=== PATIENT | female | born 1955 | race Two or more races ===

== ENCOUNTER 2020-03-30 08:53 | Inpatient (IN) | payer SELFPAY ==
[~2020-03-30] VITALS: Ht 154.9 cm; Wt 73.5 kg
[2020-03-30] MEDS ORDERED: ACETAMINOPHEN 325 MG TAB PO ONE (10:00)
[2020-03-30] MEDS ORDERED: DOXYCYCLINE 100MG/250ML 250 ML IV ONE (10:15)
[2020-03-30] MEDS ORDERED: DexAMETHasone SOD PHOS 10MG/1ML VIAL INJ IV ONE (10:15)
[2020-03-30] MEDS ORDERED: cefTRIAXone 1GM/50ML D5W 50 ML IV ONE (10:15)
[2020-03-30 10:22] LABS: Basophils # (auto) 0 10 ^3/uL (0-0.2); Basophils % (auto) 0.2 % (0.0-2.0); Eosinophils # (auto) 0 10 ^3/uL (0-0.8); Hematocrit 46.5 % (36.0-46.0); Hemoglobin 15.9 g/dL (12.2-16.2); Lymphocytes # (auto) 0.8 10 ^3/uL (0.4-5.4); Lymphocytes % (auto) 10.2 % (10.0-50.0); Mean Corpuscular Hemoglobin 30.5 pg (28.0-32.0); Mean Corpuscular Hgb Conc. 34.2 g/dL (32.0-36.0); Mean Corpuscular Volume 89.3 fL (80.0-100.0); Monocytes # (auto) 0.4 10 ^3/uL (0-1.3); Monocytes % (auto) 5.4 % (0.0-12.0); Neutrophils # (auto) 6.8 10 ^3/uL (1.6-8.6); Neutrophils % (auto) 84.2 % (37.0-80.0); Nucleated Red Blood Cells % 0.1 %; Platelet Count (auto) 201 10^3/uL (140-450); White Blood Cell 8.1 10^3/uL (4.4-10.8)
[2020-03-30 10:29] LABS: Alanine Aminotransferase 50 U/L (13-56); Albumin 3.1 g/dL (3.4-5.0); Anion Gap 8 (5-15); Aspartate Aminotransferase 43 U/L (15-37); BUN/Creatinine Ratio 22.1; Blood Urea Nitrogen 17 mg/dL (7-18); Calcium 8.6 mg/dL (8.5-10.1); Carbon Dioxide 26 mmol/L (21-32); Chloride 101 mmol/L (98-107); GFR African American 97 mL/min; GFR Non-African American 80 mL/min; Glucose 207 mg/dL (74-106); Potassium 3.5 mmol/L (3.5-5.1); Sodium 135 mmol/L (136-145)
[2020-03-30] MEDS ORDERED: ASCORBIC ACID 500 MG TAB PO ONE (10:30)
[2020-03-30] MEDS ORDERED: ZINC SULFATE 220mg CAP or TAB PO ONE (10:30)
[2020-03-30 10:33] LABS: Alkaline Phosphatase 81 U/L (45-117); Bilirubin, Total 0.8 mg/dL (0.2-1.0); Total Protein 7.6 g/dL (6.4-8.2)
[2020-03-30 11:09] LABS: Lactic Acid w/Reflex 2.2 mmol/L (0.4-2.0)
[2020-03-30] MEDS ORDERED: NITROGLYCERIN 0.4 MG SL TAB SL PRN (16:15)
[2020-03-30] MEDS ORDERED: REMDESIVIR PER PHARMACY 0 ML IV SCH (16:15)
[2020-03-30] MEDS ORDERED: MORPHINE SULF INJ 2 MG/ML SYRINGE 1ML IV PRN (16:15)
[2020-03-30 18:04] LABS: Magnesium 2.4 mg/dL (1.6-2.6)
[2020-03-30 18:53] LABS: CRP High Sensitivity 10.6 mg/dL (< 0.3)
[2020-03-30] MEDS: ENOXAPARIN SOD 40 MG/0.4 ML SYRINGE SC SCH (20:44)
[2020-03-30] MEDS: BUDESONIDE (INHALATION) 180 MCG IH IN SCH (20:45)
[2020-03-31 07:27] LABS: Basophils # (auto) 0 10 ^3/uL (0-0.2); Basophils % (auto) 0.3 % (0.0-2.0); Eosinophils # (auto) 0 10 ^3/uL (0-0.8); Hematocrit 43.9 % (36.0-46.0); Hemoglobin 14.9 g/dL (12.2-16.2); Lymphocytes # (auto) 0.9 10 ^3/uL (0.4-5.4); Lymphocytes % (auto) 14.4 % (10.0-50.0); Mean Corpuscular Hemoglobin 30.1 pg (28.0-32.0); Mean Corpuscular Hgb Conc. 33.9 g/dL (32.0-36.0); Mean Corpuscular Volume 88.7 fL (80.0-100.0); Monocytes # (auto) 0.6 10 ^3/uL (0-1.3); Monocytes % (auto) 9.4 % (0.0-12.0); Neutrophils # (auto) 4.6 10 ^3/uL (1.6-8.6); Neutrophils % (auto) 75.9 % (37.0-80.0); Nucleated Red Blood Cells % 0.3 %; Platelet Count (auto) 247 10^3/uL (140-450); Red Blood Cells 4.95 10^6/uL (4.0-5.20)
[2020-03-31 07:42] LABS: Albumin 2.5 g/dL (3.4-5.0); Calcium 8.7 mg/dL (8.5-10.1); Potassium 3.5 mmol/L (3.5-5.1)
[2020-03-31 07:46] LABS: BUN/Creatinine Ratio 32.8; Bilirubin, Total 0.6 mg/dL (0.2-1.0)
[2020-03-31] MEDS: DexAMETHasone SOD PHOS 10MG/1ML VIAL INJ IV SCH (08:23)
[2020-03-31] MEDS: ENOXAPARIN SOD 40 MG/0.4 ML SYRINGE SC SCH ×2 (08:23→22:02)
[2020-03-31] MEDS: CHOLECALCIFEROL (VITD3) 2,000 UNIT CAP PO SCH (08:23)
[2020-03-31] MEDS: ZINC SULFATE 220mg CAP or TAB PO SCH (08:23)
[2020-03-31] MEDS: ASCORBIC ACID 1,000 MG TAB PO SCH (08:23)
[2020-03-31] MEDS: BUDESONIDE (INHALATION) 180 MCG IH IN SCH ×2 (10:00→22:00)
[2020-03-31 10:22] LABS: Urine Bacteria NONE SEEN /hpf (None Seen); Urine Blood Negative /uL (Negative); Urine Mucus FEW (None Seen); Urine Specific Gravity 1.031 (1.001-1.035); Urine WBC 2 /hpf (0 - 5)
[2020-03-31] MEDS: ALBUTEROL SULF HFA 90MCG INH 200DOSE IN PRN (11:19)
[2020-03-31] MEDS ORDERED: FUROSEMIDE 40 MG/4 ML VIAL IV ONE (17:45)
[2020-03-31] MEDS ORDERED: DEXTROSE (50%) 50ML SYRG IV PRN (17:45)
[2020-03-31] MEDS: FUROSEMIDE 20 MG/2 ML VIAL IV SCH (18:00)
[2020-03-31 18:15] LABS: Cholesterol 126 mg/dL (< 200)
[2020-03-31 18:19] LABS: HDL Cholesterol 33 mg/dL (40-59); LDL Cholesterol 76 mg/dL (< 100); Triglycerides 137 mg/dL (< 150)
[2020-03-31] MEDS: SODIUM CHLORIDE 0.9% 1,000 ML IV SCH (18:20)
[2020-03-31] MEDS: DOXYCYCLINE 100MG/250ML 250 ML IV SCH (18:21)
[2020-03-31 20:34] VITALS: BP 124/77
[2020-03-31] MEDS: ACCU-CHEK COMFORT CURVE STRIP VI SCH (22:02)
[2020-03-31] MEDS: ATORVASTATIN 20 MG TAB PO SCH (22:02)
[2020-03-31] MEDS: InsuLIN REG 1unit/0.01ml Soln (100units/ml) SC SCH (22:03)
[2020-03-31] MEDS ORDERED: ACETAMINOPHEN 325 MG TAB PO PRN (22:15)
[2020-04-01] VITALS: BP 124/77
[2020-04-01] MEDS: ACCU-CHEK COMFORT CURVE STRIP VI SCH ×4 (06:24→22:10)
[2020-04-01] MEDS: FUROSEMIDE 20 MG/2 ML VIAL IV SCH ×2 (06:24→17:26)
[2020-04-01] MEDS: InsuLIN REG 1unit/0.01ml Soln (100units/ml) SC SCH ×4 (06:27→22:09)
[2020-04-01 08:00] VITALS: BP 124/77
[2020-04-01] MEDS: BUDESONIDE (INHALATION) 180 MCG IH IN SCH ×2 (10:00→20:01)
[2020-04-01] MEDS: CHOLECALCIFEROL (VITD3) 2,000 UNIT CAP PO SCH (10:04)
[2020-04-01] MEDS: ASPirin 81 mg TAB PO SCH (10:04)
[2020-04-01] MEDS: ASCORBIC ACID 1,000 MG TAB PO SCH (10:04)
[2020-04-01] MEDS: ZINC SULFATE 220mg CAP or TAB PO SCH (10:04)
[2020-04-01] MEDS: DOXYCYCLINE 100MG/250ML 250 ML IV SCH ×2 (10:06→22:12)
[2020-04-01] MEDS: DexAMETHasone SOD PHOS 10MG/1ML VIAL INJ IV SCH (10:06)
[2020-04-01] MEDS: ENOXAPARIN SOD 40 MG/0.4 ML SYRINGE SC SCH ×2 (10:07→22:11)
[2020-04-01] MEDS: SODIUM CHLORIDE 0.9% 1,000 ML IV SCH (13:26)
[2020-04-01] MEDS: ALBUTEROL SULF HFA 90MCG INH 200DOSE IN PRN ×2 (13:55→20:01)
[2020-04-01 16:00] VITALS: BP 117/69
[2020-04-01] MEDS ORDERED: SODIUM CHLORIDE 0.9% 1,000 ML IV SCH (21:30)
[2020-04-01] MEDS ORDERED: POTASSIUM CHL 20 Meq TABLET PO ONE (21:30)
[2020-04-01] MEDS ORDERED: INSULIN LANTUS (GLARGINE) 1 /0.01ml (100units/ml) SC SCH (22:00)
[2020-04-01] MEDS: ATORVASTATIN 20 MG TAB PO SCH (22:11)
[2020-04-01 23:38] VITALS: BP 106/73
[2020-04-01 23:54] VITALS: BP 114/77
[2020-04-02] VITALS: BP 116/70
[2020-04-02 01:15] VITALS: BP 120/72
[2020-04-02] MEDS: FUROSEMIDE 20 MG/2 ML VIAL IV SCH ×2 (05:24→17:31)
[2020-04-02] MEDS: InsuLIN REG 1unit/0.01ml Soln (100units/ml) SC SCH ×4 (06:10→23:59)
[2020-04-02] MEDS: ACCU-CHEK COMFORT CURVE STRIP VI SCH ×4 (06:10→23:59)
[2020-04-02 08:00] VITALS: BP 104/60
[2020-04-02] MEDS: BUDESONIDE (INHALATION) 180 MCG IH IN SCH ×2 (08:00→20:10)
[2020-04-02] MEDS: ALBUTEROL SULF HFA 90MCG INH 200DOSE IN PRN ×2 (08:00→20:10)
[2020-04-02] MEDS: ASPirin 81 mg TAB PO SCH (10:24)
[2020-04-02] MEDS: DOXYCYCLINE 100MG/250ML 250 ML IV SCH (10:24)
[2020-04-02] MEDS: CHOLECALCIFEROL (VITD3) 2,000 UNIT CAP PO SCH (10:25)
[2020-04-02] MEDS: ASCORBIC ACID 1,000 MG TAB PO SCH (10:26)
[2020-04-02] MEDS: POTASSIUM CHL 20 Meq TABLET PO SCH (10:26)
[2020-04-02] MEDS: ENOXAPARIN SOD 40 MG/0.4 ML SYRINGE SC SCH ×2 (10:26→22:18)
[2020-04-02] MEDS: ZINC SULFATE 220mg CAP or TAB PO SCH (10:26)
[2020-04-02] MEDS: DexAMETHasone SOD PHOS 10MG/1ML VIAL INJ IV SCH (10:27)
[2020-04-02 16:00] VITALS: BP 109/64
[2020-04-02] MEDS ORDERED: cefTRIAXone 1GM/50ML D5W 50 ML IV ONE (20:15)
[2020-04-02] MEDS ORDERED: AZITHROMYCIN 250 MG TAB PO ONE (20:15)
[2020-04-02] MEDS ORDERED: DEXTROSE (50%) 50ML SYRG IV PRN (20:15)
[2020-04-02] MEDS ORDERED: REMDESIVIR 200 MG in NS 210ml LOADING DOSE ADULT IV ONE (22:00)
[2020-04-02] MEDS: ATORVASTATIN 20 MG TAB PO SCH (22:18)
[2020-04-02] MEDS: INSULIN LANTUS (GLARGINE) 1 /0.01ml (100units/ml) SC SCH (22:22)
[2020-04-03] VITALS: BP 109/60
[2020-04-03] MEDS: InsuLIN REG 1unit/0.01ml Soln (100units/ml) SC SCH ×3 (05:28→18:00)
[2020-04-03] MEDS: ACCU-CHEK COMFORT CURVE STRIP VI SCH ×3 (05:29→18:00)
[2020-04-03] MEDS: FUROSEMIDE 20 MG/2 ML VIAL IV SCH (05:29)
[2020-04-03 08:00] VITALS: BP 107/57
[2020-04-03] MEDS: BUDESONIDE (INHALATION) 180 MCG IH IN SCH ×2 (10:00→19:45)
[2020-04-03] MEDS: POTASSIUM CHL 20 Meq TABLET PO SCH (11:03)
[2020-04-03] MEDS: DexAMETHasone SOD PHOS 10MG/1ML VIAL INJ IV SCH (11:03)
[2020-04-03] MEDS: ZINC SULFATE 220mg CAP or TAB PO SCH (11:03)
[2020-04-03] MEDS: ASPirin 81 mg TAB PO SCH (11:03)
[2020-04-03] MEDS: CHOLECALCIFEROL (VITD3) 2,000 UNIT CAP PO SCH (11:04)
[2020-04-03] MEDS: ASCORBIC ACID 1,000 MG TAB PO SCH (11:04)
[2020-04-03] MEDS: ENOXAPARIN SOD 40 MG/0.4 ML SYRINGE SC SCH ×2 (11:05→21:46)
[2020-04-03] MEDS: REMDESIVIR 100mg 100 MG in SODIUM CHL 0.9% 230 ML IV SCH (14:58)
[2020-04-03 16:00] VITALS: BP 135/74
[2020-04-03] MEDS ORDERED: FUROSEMIDE 40 MG/4 ML VIAL IV SCH (18:00)
[2020-04-03] MEDS: ALBUTEROL SULF HFA 90MCG INH 200DOSE IN PRN (19:45)
[2020-04-03] MEDS: cefTRIAXone 1GM/50ML D5W 50 ML IV SCH (21:02)
[2020-04-03] MEDS: AZITHROMYCIN 250 MG TAB PO SCH (21:46)
[2020-04-03] MEDS: ATORVASTATIN 20 MG TAB PO SCH (21:46)
[2020-04-03] MEDS: INSULIN LANTUS (GLARGINE) 1 /0.01ml (100units/ml) SC SCH (22:00)
[2020-04-04] VITALS: BP 128/72
[2020-04-04] MEDS: ACCU-CHEK COMFORT CURVE STRIP VI SCH ×5 (06:00→23:20)
[2020-04-04] MEDS: InsuLIN REG 1unit/0.01ml Soln (100units/ml) SC SCH ×5 (06:00→23:23)
[2020-04-04 07:15] LABS: Basophils # (auto) 0 10 ^3/uL (0-0.2); Basophils % (auto) 0.2 % (0.0-2.0); Eosinophils # (auto) 0 10 ^3/uL (0-0.8); Hematocrit 45.7 % (36.0-46.0); Hemoglobin 15.9 g/dL (12.2-16.2); Lymphocytes # (auto) 1.3 10 ^3/uL (0.4-5.4); Lymphocytes % (auto) 13.1 % (10.0-50.0); Mean Corpuscular Hemoglobin 30.8 pg (28.0-32.0); Mean Corpuscular Hgb Conc. 34.8 g/dL (32.0-36.0); Mean Corpuscular Volume 88.6 fL (80.0-100.0); Monocytes # (auto) 0.7 10 ^3/uL (0-1.3); Monocytes % (auto) 7.1 % (0.0-12.0); Neutrophils # (auto) 7.6 10 ^3/uL (1.6-8.6); Neutrophils % (auto) 79.6 % (37.0-80.0); Nucleated Red Blood Cells % 0.1 %; Platelet Count (auto) 302 10^3/uL (140-450); Red Blood Cells 5.16 10^6/uL (4.0-5.20); Red Cell Distribution Width 12.6 % (11.8-14.3); White Blood Cell 9.6 10^3/uL (4.4-10.8)
[2020-04-04 07:42] LABS: Potassium 3.5 mmol/L (3.5-5.1)
[2020-04-04 07:47] LABS: BUN/Creatinine Ratio 45.5
[2020-04-04 08:00] VITALS: BP 97/58
[2020-04-04] MEDS: BUDESONIDE (INHALATION) 180 MCG IH IN SCH ×2 (10:00→19:55)
[2020-04-04 10:07] VITALS: BP 97/58
[2020-04-04] MEDS: DexAMETHasone SOD PHOS 10MG/1ML VIAL INJ IV SCH (10:21)
[2020-04-04] MEDS: ENOXAPARIN SOD 40 MG/0.4 ML SYRINGE SC SCH ×2 (10:22→21:22)
[2020-04-04] MEDS: FUROSEMIDE 40 MG/4 ML VIAL IV SCH (10:22)
[2020-04-04] MEDS: ASPirin 81 mg TAB PO SCH (10:22)
[2020-04-04] MEDS: CHOLECALCIFEROL (VITD3) 2,000 UNIT CAP PO SCH (10:23)
[2020-04-04] MEDS: ASCORBIC ACID 1,000 MG TAB PO SCH (10:23)
[2020-04-04] MEDS: ZINC SULFATE 220mg CAP or TAB PO SCH (10:23)
[2020-04-04] MEDS: POTASSIUM CHL 20 Meq TABLET PO SCH (10:23)
[2020-04-04] MEDS: REMDESIVIR 100mg 100 MG in SODIUM CHL 0.9% 230 ML IV SCH (15:45)
[2020-04-04 16:00] VITALS: BP 107/71
[2020-04-04] MEDS: ALBUTEROL SULF HFA 90MCG INH 200DOSE IN PRN (19:55)
[2020-04-04] MEDS: ATORVASTATIN 20 MG TAB PO SCH (21:22)
[2020-04-04] MEDS: cefTRIAXone 1GM/50ML D5W 50 ML IV SCH (21:23)
[2020-04-04] MEDS: AZITHROMYCIN 250 MG TAB PO SCH (21:41)
[2020-04-04] MEDS: INSULIN LANTUS (GLARGINE) 1 /0.01ml (100units/ml) SC SCH (22:48)
[2020-04-05] VITALS: BP 127/68
[2020-04-05] MEDS: InsuLIN REG 1unit/0.01ml Soln (100units/ml) SC SCH ×4 (06:00→23:38)
[2020-04-05] MEDS: ACCU-CHEK COMFORT CURVE STRIP VI SCH ×4 (06:08→23:32)
[2020-04-05] MEDS: ALBUTEROL SULF HFA 90MCG INH 200DOSE IN PRN ×2 (06:37→21:02)
[2020-04-05] MEDS: BUDESONIDE (INHALATION) 180 MCG IH IN SCH ×2 (06:37→21:02)
[2020-04-05 08:00] VITALS: BP 113/58
[2020-04-05] MEDS: ZINC SULFATE 220mg CAP or TAB PO SCH (10:51)
[2020-04-05] MEDS: ASPirin 81 mg TAB PO SCH (10:51)
[2020-04-05] MEDS: ENOXAPARIN SOD 40 MG/0.4 ML SYRINGE SC SCH ×2 (10:52→21:18)
[2020-04-05] MEDS: CHOLECALCIFEROL (VITD3) 2,000 UNIT CAP PO SCH (10:52)
[2020-04-05] MEDS: POTASSIUM CHL 20 Meq TABLET PO SCH (10:52)
[2020-04-05] MEDS: ASCORBIC ACID 1,000 MG TAB PO SCH (10:52)
[2020-04-05] MEDS: FUROSEMIDE 40 MG/4 ML VIAL IV SCH (10:53)
[2020-04-05] MEDS: DexAMETHasone SOD PHOS 10MG/1ML VIAL INJ IV SCH (10:54)
[2020-04-05] MEDS: REMDESIVIR 100mg 100 MG in SODIUM CHL 0.9% 230 ML IV SCH (15:12)
[2020-04-05 15:55] VITALS: BP 103/66
[2020-04-05] MEDS: ATORVASTATIN 20 MG TAB PO SCH (21:05)
[2020-04-05] MEDS: cefTRIAXone 1GM/50ML D5W 50 ML IV SCH (21:05)
[2020-04-05] MEDS: AZITHROMYCIN 250 MG TAB PO SCH (21:05)
[2020-04-05] MEDS: INSULIN LANTUS (GLARGINE) 1 /0.01ml (100units/ml) SC SCH (21:27)
[2020-04-06] VITALS: BP 101/56
[2020-04-06] MEDS: InsuLIN REG 1unit/0.01ml Soln (100units/ml) SC SCH ×3 (05:31→18:11)
[2020-04-06] MEDS: ACCU-CHEK COMFORT CURVE STRIP VI SCH ×3 (05:31→18:11)
[2020-04-06] MEDS: BUDESONIDE (INHALATION) 180 MCG IH IN SCH ×2 (06:14→20:05)
[2020-04-06] MEDS: ALBUTEROL SULF HFA 90MCG INH 200DOSE IN PRN ×2 (06:14→20:05)
[2020-04-06 07:55] LABS: BUN/Creatinine Ratio 44.4; Calcium 9.2 mg/dL (8.5-10.1); Potassium 3.8 mmol/L (3.5-5.1)
[2020-04-06 08:00] VITALS: BP 115/61
[2020-04-06] MEDS: ASCORBIC ACID 1,000 MG TAB PO SCH (09:25)
[2020-04-06] MEDS: POTASSIUM CHL 20 Meq TABLET PO SCH (09:26)
[2020-04-06] MEDS: ASPirin 81 mg TAB PO SCH (09:26)
[2020-04-06] MEDS: ZINC SULFATE 220mg CAP or TAB PO SCH (09:26)
[2020-04-06] MEDS: ENOXAPARIN SOD 40 MG/0.4 ML SYRINGE SC SCH (09:27)
[2020-04-06] MEDS: DexAMETHasone SOD PHOS 10MG/1ML VIAL INJ IV SCH (09:27)
[2020-04-06] MEDS: CHOLECALCIFEROL (VITD3) 2,000 UNIT CAP PO SCH (09:27)
[2020-04-06] MEDS: FUROSEMIDE 40 MG/4 ML VIAL IV SCH (09:28)
[2020-04-06] MEDS ORDERED: CHOL1CAP47 PO (13:44)
[2020-04-06] MEDS ORDERED: BUDE2SUS3 IN (13:52)
[2020-04-06] MEDS ORDERED: CHOL500033 PO (13:52)
[2020-04-06] MEDS ORDERED: ALBUAER3 IN (13:52)
[2020-04-06] MEDS ORDERED: ZINC220T6 PO (13:52)
[2020-04-06] MEDS ORDERED: ASCO10003 PO (13:52)
[2020-04-06] MEDS ORDERED: FAMO20TA10 PO (13:52)
[2020-04-06] MEDS ORDERED: DEX4T PO (13:52)
[2020-04-06] MEDS ORDERED: DOXY-286 PO (13:52)
[2020-04-06] MEDS ORDERED: ASPI-378 PO (13:52)
[2020-04-06] MEDS ORDERED: METF-372 PO (13:52)
[2020-04-06] MEDS ORDERED: METF-371 PO (14:02)
[2020-04-06] MEDS: REMDESIVIR 100mg 100 MG in SODIUM CHL 0.9% 230 ML IV SCH (15:50)
[2020-04-06 16:00] VITALS: BP 114/57
== END 2020-04-06 20:45 | disposition home or self-care (01) | DRG 871 ==
LOC: ER 08:53 → TELE 16:13 → TELE-WESTW 03-31 20:34
PROVIDERS: ADMIT Nurse Practitioner Acute Care; ATTEND Internal Medicine
PROC: XW033E5 Introduction of Remdesivir Anti-infective into Peripheral Vein, Percutaneous Approach, New Technology Group 5 (ICD-10-PCS; principal; 2020-03-30)
PROC: XW13325 Transfusion of Convalescent Plasma (Nonautologous) into Peripheral Vein, Percutaneous Approach, New Technology Group 5 (ICD-10-PCS; 2020-04-01)
DX: A41.89 Other specified sepsis (principal); J96.01 Acute respiratory failure with hypoxia; U07.1 COVID-19; J12.82 Pneumonia due to coronavirus disease 2019; E44.0 Moderate protein-calorie malnutrition; D89.839 Cytokine release syndrome, grade unspecified; E66.9 Obesity, unspecified; Z68.30 Body mass index [BMI] 30.0-30.9, adult; E88.09 Other disorders of plasma-protein metabolism, not elsewhere classified; E11.65 Type 2 diabetes mellitus with hyperglycemia; R65.20 Severe sepsis without septic shock; E66.01 Morbid (severe) obesity due to excess calories; E78.5 Hyperlipidemia, unspecified
CPT/HCPCS: 36415; 36600; 71045; 80048; 80053; 80061; 81001; 82728; 82805; 82962; 83036; 83605; 83615; 83735; 84443; 84484; 85025; 85379; 86141; 86850; 86900; 86901; 87040; 87426; 93005; 94640; 96365; 96367; 96375; G0378; J0696; J1100; J1815; J3490

== ENCOUNTER 2021-11-29 11:32 | Inpatient (IN) | payer MEDICAID, OTHER ==
[~2021-11-29] VITALS: Ht 152.4 cm; Wt 70.3 kg
[~2021-11-29 11:32] MED LIST: ALBUAER3 IN; ASCO10003 PO; ASPI-378 PO; BUDE2SUS3 IN; CHOL1CAP47 PO; DEX4T PO; DOXY-286 PO; FAMO20TA10 PO; METF-371 PO; ZINC220T6 PO
[2021-11-29 12:02] LABS: Urine Bacteria NONE SEEN /hpf (None Seen); Urine Blood Negative /uL (Negative); Urine Mucus FEW (None Seen); Urine Specific Gravity 1.036 (1.001-1.035); Urine WBC 2 /hpf (0 - 5)
[2021-11-29 12:24] LABS: Basophils # (auto) 0 10 ^3/uL (0-0.2); Basophils % (auto) 0.8 % (0.0-2.0); Eosinophils # (auto) 0.1 10 ^3/uL (0-0.8); Eosinophils % (auto) 2.5 % (0.0-7.0); Hematocrit 43.4 % (36.0-46.0); Hemoglobin 14.2 g/dL (12.2-16.2); Lymphocytes # (auto) 1.4 10 ^3/uL (0.4-5.4); Lymphocytes % (auto) 35.7 % (10.0-50.0); Mean Corpuscular Hgb Conc. 32.6 g/dL (32.0-36.0); Mean Corpuscular Volume 88.8 fL (80.0-100.0); Monocytes # (auto) 0.3 10 ^3/uL (0-1.3); Neutrophils # (auto) 2.1 10 ^3/uL (1.6-8.6); Red Blood Cells 4.89 10^6/uL (4.0-5.20); Red Cell Distribution Width 13.2 % (11.8-14.3); White Blood Cell 3.9 10^3/uL (4.4-10.8)
[2021-11-29 12:38] LABS: Albumin 3.8 g/dL (3.4-5.0); Calcium 9.1 mg/dL (8.5-10.1); Potassium 4.2 mmol/L (3.5-5.1)
[2021-11-29 12:42] LABS: BUN/Creatinine Ratio 18.3; Bilirubin, Total 0.6 mg/dL (0.2-1.0)
[2021-11-29] MEDS ORDERED: SODIUM CHLORIDE 0.9% 1,000 ML IV ONE ×2 (14:15→15:00)
[2021-11-29] MEDS ORDERED: MORPHINE SULFATE INJ 2 MG/ml SYRG IV PRN (15:00)
[2021-11-29] MEDS ORDERED: INSULIN LANTUS (GLARGINE) 1 /0.01ml (100units/ml) SC ONE (15:00)
[2021-11-29] MEDS ORDERED: NITROGLYCERIN 0.4 MG SL TAB SL PRN (15:00)
[2021-11-29] MEDS ORDERED: DEXTROSE (50%) 50ML SYRG IV PRN (15:00)
[2021-11-29] MEDS ORDERED: ENOXAPARIN SOD 40 MG/0.4 ML SYRINGE SC ONE (15:15)
[2021-11-29] MEDS ORDERED: PANTOPRAZOLE 40 MG/10 ML VIAL INJ IV ONE (15:15)
[2021-11-29] MEDS: InsuLIN REG 1unit/0.01ml Soln (100units/ml) SC SCH ×2 (16:19→22:51)
[2021-11-29] MEDS: ACCU-CHEK COMFORT CURVE STRIP VI SCH ×2 (16:19→22:47)
[2021-11-30 04:39] LABS: Basophils # (auto) 0 10 ^3/uL (0-0.2); Basophils % (auto) 0.7 % (0.0-2.0); Eosinophils # (auto) 0.1 10 ^3/uL (0-0.8); Eosinophils % (auto) 3.2 % (0.0-7.0); Hematocrit 36.1 % (36.0-46.0); Hemoglobin 12.6 g/dL (12.2-16.2); Lymphocytes # (auto) 1.7 10 ^3/uL (0.4-5.4); Lymphocytes % (auto) 45.5 % (10.0-50.0); Mean Corpuscular Hemoglobin 30.7 pg (28.0-32.0); Mean Corpuscular Hgb Conc. 34.8 g/dL (32.0-36.0); Mean Corpuscular Volume 88.3 fL (80.0-100.0); Monocytes # (auto) 0.3 10 ^3/uL (0-1.3); Monocytes % (auto) 7.8 % (0.0-12.0); Neutrophils # (auto) 1.6 10 ^3/uL (1.6-8.6); Neutrophils % (auto) 42.8 % (37.0-80.0); Red Cell Distribution Width 12.9 % (11.8-14.3); White Blood Cell 3.8 10^3/uL (4.4-10.8)
[2021-11-30 04:55] LABS: Potassium 3.2 mmol/L (3.5-5.1)
[2021-11-30 05:00] LABS: Albumin 2.9 g/dL (3.4-5.0); BUN/Creatinine Ratio 19.6; Bilirubin, Total 0.4 mg/dL (0.2-1.0); Total Protein 5.3 g/dL (6.4-8.2)
[2021-11-30] MEDS: InsuLIN REG 1unit/0.01ml Soln (100units/ml) SC SCH ×4 (07:00→22:23)
[2021-11-30] MEDS: ACCU-CHEK COMFORT CURVE STRIP VI SCH ×4 (07:00→22:12)
[2021-11-30] MEDS: ENOXAPARIN SOD 40 MG/0.4 ML SYRINGE SC SCH (10:39)
[2021-11-30] MEDS: PANTOPRAZOLE 40 MG/10 ML VIAL INJ IV SCH (10:39)
[2021-11-30 15:58] VITALS: BP 136/70
[2021-11-30 17:00] VITALS: BP 136/70
[2021-11-30] MEDS ORDERED: POTASSIUM EFFERVESENT TAB 25 MEQ PO ONE (17:15)
[2021-11-30 22:00] VITALS: BP 109/53
[2021-11-30] MEDS: INSULIN LANTUS (GLARGINE) 1 /0.01ml (100units/ml) SC SCH (22:23)
[2021-12-01 05:29] LABS: Cholesterol 166 mg/dL (< 200); HDL Cholesterol 47 mg/dL (40-59); LDL Cholesterol 104 mg/dL (< 100); Triglycerides 189 mg/dL (< 150)
[2021-12-01 05:57] VITALS: BP 106/67
[2021-12-01] MEDS: ACCU-CHEK COMFORT CURVE STRIP VI SCH ×4 (06:28→21:52)
[2021-12-01] MEDS: InsuLIN REG 1unit/0.01ml Soln (100units/ml) SC SCH ×4 (06:34→21:53)
[2021-12-01] MEDS ORDERED: ADENOSINE 60 MG in GIVE UN-DILUTED 0 ML IV STA (09:05)
[2021-12-01] MEDS: PANTOPRAZOLE 40 MG/10 ML VIAL INJ IV SCH (11:26)
[2021-12-01] MEDS: ENOXAPARIN SOD 40 MG/0.4 ML SYRINGE SC SCH (11:26)
[2021-12-01 13:00] VITALS: BP 113/54
[2021-12-01 16:57] VITALS: BP 118/76
[2021-12-01 21:49] VITALS: BP 115/58
[2021-12-01] MEDS: INSULIN LANTUS (GLARGINE) 1 /0.01ml (100units/ml) SC SCH (21:52)
[2021-12-02 04:48] VITALS: BP 95/50
[2021-12-02] MEDS: InsuLIN REG 1unit/0.01ml Soln (100units/ml) SC SCH ×2 (07:00→12:10)
[2021-12-02] MEDS: ACCU-CHEK COMFORT CURVE STRIP VI SCH ×2 (07:01→11:58)
[2021-12-02] MEDS: ENOXAPARIN SOD 40 MG/0.4 ML SYRINGE SC SCH (08:43)
[2021-12-02] MEDS: PANTOPRAZOLE 40 MG/10 ML VIAL INJ IV SCH (08:43)
[2021-12-02 09:00] VITALS: BP 99/49
[2021-12-02] MEDS ORDERED: ATO40T PO (10:21)
[2021-12-02 13:00] VITALS: BP 106/60
[2021-12-02] MEDS ORDERED: ATORVASTATIN 20 MG TAB PO SCH (22:00)
== END 2021-12-02 14:45 | disposition home or self-care (01) | DRG 203 ==
LOC: ER 11:32 → TELE 15:05 → TELE-WESTW 11-30 15:08
PROVIDERS: ADMIT Registered Nurse; ATTEND Internal Medicine
DX: R07.89 Other chest pain (principal); E11.65 Type 2 diabetes mellitus with hyperglycemia; E66.9 Obesity, unspecified; I45.10 Unspecified right bundle-branch block; Z20.822 Contact with and (suspected) exposure to COVID-19; E78.5 Hyperlipidemia, unspecified; E87.6 Hypokalemia; J45.909 Unspecified asthma, uncomplicated; Z79.84 Long term (current) use of oral hypoglycemic drugs; Z83.3 Family history of diabetes mellitus; Z68.30 Body mass index [BMI] 30.0-30.9, adult
CPT/HCPCS: 36415; 36600; 71045; 78452; 80053; 80061; 81001; 82805; 82962; 83036; 83735; 83880; 84443; 84484; 85025; 87086; 93005; 93017; 93306; C9113; G0378; J0153; J1815